=== PATIENT | female | born 1960 | race Caucasian/White ===

== ENCOUNTER 2019-12-03 15:58 | Emergency (ER) | payer BC, SELFPAY ==
--- NOTE | ~2019-12-03 | US_ITS ---
EXAMINATION: US venous doppler LE DATE: 12/03/2019 16:35 INDICATION: Right lower limb pain and swelling. TECHNIQUE: Grayscale ultrasound images without and with compression and Doppler ultrasound images of the right lower extremity veins were obtained. COMPARISON: Ultrasound 08/07/2019 FINDINGS: The visualized portions of right common femoral vein, profunda (deep) femoral vein, femoral vein, pop liteal vein, peroneal veins, posterior tibial veins, and greater saphenous vein outflow are patent. IMPRESSION: 1. No deep venous thrombosis. Reviewed, dictated and finalized at location A. 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
--- NOTE | 2019-12-03 16:44 | ED.LOWEXIN ---
HPI - Extremity Injury (Lower) General Stated Complaint: r leg swelling Time Seen by Provider: 12/03/19 16:07 Source: patient Mode of arrival: ambulatory Limitations: no limitations History of Present Illness HPI Narrative: Patient presents with chief complaint of increased swelling to her right lower leg that she has noted over the past few days. Patient states that she had a tumor removed by orthopedic surgery in [facility] on November 01. She states that she had drain removed from her leg on November 05. Patient states she has been up and about walking more often lately but denies any trauma to her leg. Patient states that she notes swelling from the knee to her toes. She reports a tight sensation to her leg. She denies localized tenderness to her calf. Patient states that she called her surgeon who instructed her to come to [facility] for rule out DVT. Patient denies any fevers, chills, shortness of breath, chest pain or any other symptoms. Patient states that she takes an aspirin twice daily but is now any additional blood thinners. Patient reports a history of hypertension, hypercholesterol. She denies smoking, substance abuse or alcohol usage. Related Data Home Medications Medication Instructions Recorded Confirmed hydrocodone-acetaminophen [[place]] 5 - 325 tablet PO HS 10/05/19 10/05/19 pravastatin 40 mg HS 10/05/19 10/05/19 Allergies Allergy/AdvReac Type Severity Reaction Status Date / Time adhesive tape Allergy Intermediate REDNESS,ITC Verified 10/08/19 11:25 [facility] Review of Systems Review of Systems: Narrative: CONSTITUTIONAL: Denies fever, chills, or sweats. EYES: Denies visual changes, redness, or discharge. ENT: Denies rhinorrhea, congestion, sore throat, or otalgia. CARDIOVASCULAR: Denies chest pain, palpitations, or edema. RESPIRATORY: Denies cough or dyspnea. GASTROINTESTINAL: Denies abdominal pain, nausea, vomiting, or diarrhea. GENITOURINARY: Denies dysuria or hematuria. SKIN: Denies rash or itching. MUSCULOSKELETAL: Reports right leg swelling denies back pain, joint pain, or myalgia. NEUROLOGIC: Denies headache, numbness, dizziness, or weakness. PSYCHIATRIC: Denies anxiety or depression. [facility] Past Medical History Medical History (Updated 12/03/19 @ 16:51 by Dez Gore PA-C) Arthritis Osteoarthritis, mainly in the knees. She receives cortisone injections in the right knee per Dr. Bro. She is status post partial left knee replacement. GERD (gastroesophageal reflux disease) HTN (hypertension) Hyperlipidemia Seasonal allergies Family History Family History (Updated 10/05/19 @ 15:37 by Leatha Lance PA-C) Father Diabetes mellitus Myasthenia gravis Mother Hypertension Family history of malignant neoplasm of breast in first degree relative Social History Social History (Updated 10/05/19 @ 15:39 by Leatha Lance PA-C) Social History: Mrs. Vogt is and lives with her in [place]. She designates her , León Vogt, as her surrogate decision maker and she wishes to be a full code. They have 2 children, 1 daughter without any significant medical problems. Their son was killed by a drunk coach driver at age 7. 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 She smoked up to 2 packs of cigarettes per day and quit in 2004. She considers herself a social drinker and will typically have a glass of wine with dinner several nights a week as well. She denies illicit drug use. Gender identity (if verbalized by the patient): Female Exam Narrative: Exam Narrative: GENERAL: Well-appearing, well-nourished, and in no acute distress. HEAD: Normocephalic, atraumatic. EYES: PERRLA and EOMI. ENT: Nares clear, no rhinorrhea or epistaxis. Mucous membranes moist. Oropharynx without tonsillar hypertrophy exudate or other lesions. Bilateral TMs pearly gutierrez nonbulging NECK: Supple. No raghav
[2019-12-03 16:47] VITALS: BP 137/77; PULSE 103; RESP 16; TEMP 37; O2SAT 98
== END 2019-12-03 17:03 | disposition home or self-care (01) ==
PROVIDERS: Emergency Provider Emergency Medicine; PCP Family Medicine
DX: R60.0 Localized edema (principal); M19.90 Unspecified osteoarthritis, unspecified site; K21.9 Gastro-esophageal reflux disease without esophagitis; I10 Essential (primary) hypertension; E78.5 Hyperlipidemia, unspecified
CPT/HCPCS: 93971; 99284

== ENCOUNTER 2020-03-25 08:41 | Emergency (ER) | payer BC, SELFPAY ==
--- NOTE | 2020-03-25 08:49 | ED.FEMALEGU ---
HPI - Female Genitourinary General Chief complaint: Urogenital-Female Stated complaint: uti? Time Seen by Provider: 03/25/20 08:49 Source: patient Mode of arrival: ambulatory Limitations: no limitations History of Present Illness HPI Narrative: Patient is a 59-year-old female who presents for evaluation of dysuria, fever. Patient reports a 4-day history of worsening pain with urination, and urinary frequency. She reports mild, aching back pain which is dull in nature without radiation to the chest. Patient also reports lower abdominal pain. No nausea or vomiting. No chest pain, headache. No weakness. Patient states she has history of urinary tract infection several years ago, no recent antibiotics for this. She denies constipation or diarrhea. Related Data Home Medications Medication Instructions Recorded Confirmed hydrocodone-acetaminophen [[place]] 5 - 325 tablet PO HS 10/05/19 10/05/19 pravastatin 40 mg tablet 40 mg PO DAILY 02/14/20 Allergies Allergy/AdvReac Type Severity Reaction Status Date / Time adhesive tape Allergy Intermediate REDNESS,ITC Verified 02/14/20 09:38 [facility] Review of Systems Review of Systems: Narrative: CONSTITUTIONAL: Reports fever CARDIOVASCULAR: Denies chest pain, palpitations, or edema. RESPIRATORY: Denies cough or dyspnea. GASTROINTESTINAL: Reports lower abdominal pain, denies nausea, vomiting or diarrhea GENITOURINARY: Reports dysuria and hematuria SKIN: Denies rash or itching. MUSCULOSKELETAL: Reports back pain, denies myalgias NEUROLOGIC: Denies headache, numbness, or weakness. [facility] Past Medical History Medical History Arthritis Osteoarthritis, mainly in the knees. She receives cortisone injections in the right knee per Dr. Bro. She is status post partial left knee replacement. GERD (gastroesophageal reflux disease) HTN (hypertension) Hyperlipidemia Seasonal allergies Surgical History Surgical History H/O inguinal hernia repair H/O rotator cuff surgery Bilateral History of bilateral carpal tunnel release History of cholecystectomy History of colonoscopy History of tonsillectomy Status post left partial knee replacement Family History Family History Father Diabetes mellitus Myasthenia gravis Mother Hypertension Family history of malignant neoplasm of breast in first degree relative Social History Social History Social History: Mrs. Vogt is and lives with her in [place]. She designates her , León Vogt, as her surrogate decision maker and she wishes to be a full code. They have 2 children, 1 daughter without any significant medical problems. Their son was killed by a drunk ross carrier driver at age 7. 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 She smoked up to 2 packs of cigarettes per day and quit in 2004. She considers herself a social drinker and will typically have a glass of wine with dinner several nights a week as well. She denies illicit drug use. Gender identity (if verbalized by the patient): Female Exam Narrative: Exam Narrative: GENERAL: Awake, alert, conversant HEAD: Normocephalic, atraumatic. EYES: PERRLA and EOMI. ENT: Nares clear, no rhinorrhea or epistaxis. Mucous membranes moist. NECK: Supple. CHEST: No respiratory distress, breathing even and non labored HEART: Tachycardic rate, sinus rhythm ABDOMEN:Non distended, non tender, mild suprapubic tenderness, no CVA tenderness EXTREMITIES: Normal range of motion. No edema. SKIN: Warm, dry, no rash. NEURO:No focal deficits. Alert and oriented x3 Course Vital Signs Vital signs: Vital Signs Temperature 37.6 C H 03/25/20 08:50 Pulse Rate 118 H 03/25/20 08:50 Respiratory Rate 18 03/25/20 08:50
[2020-03-25 08:50] VITALS: BP 121/78; PULSE 118; RESP 18; TEMP 37.6; O2SAT 96
[2020-03-25] MEDS: ONDANSETRON INJ 4 MG/2 ML VIAL IV PUSH (09:05)
[2020-03-25] MEDS: SODIUM CHLORIDE 0.9% IV 1,000 ML 999 ML IV CONT (09:05)
[2020-03-25 09:12] LABS: Add Urine Microscopic? YES; Appearance Urine Clear (Clear); Bacteria Urine Trace /hpf; Bilirubin Urine Negative (Negative); Blood Urine Negative (Negative); Color Urine Yellow (Yellow); Glucose Urine UA Negative (Negative); Ketones Urine Negative (Negative); Leukocyte Esterase Ur 1+ LEU/UL (Negative); Mucus Urine Rare /lpf; Nitrate Urine Negative (Negative); Protein Urine Negative (Negative); Specific Grav Ur 1.015 (1.001-1.035); Squamous Epithelial Cell Urine Many /hpf (Few); Transitional Epi Cells Urine Rare /hpf (None Seen); Urobilinogen Urine Negative mg/dL (<2.0)
[2020-03-25 09:16] LABS: Basophils Absolute Auto 0.1 K/mm3 (0.0-0.1); Basophils Percent Auto 0.4 % (0.2-1.2); Eosinophils Absolute Auto 0.2 K/mm3 (0-0.3); Eosinophils Percent Auto 1.4 % (0-4.4); Hematocrit 24.9 % (37.0-47.0); Hemoglobin 7.9 g/dL (12.0-15.0); Immature Granulocyte Absolute 0.32 K/mm3 (0.00-0.031); Immature Granulocyte Percent A 2.5 % (0-0.5); Lymphocytes Absolute Auto 1.37 K/mm3 (0.9-3.2); Lymphocytes Percent Auto 10.8 % (18.3-44.2); Mean Corpuscular HGB Conc 31.7 g/dl (32-36); Mean Corpuscular Hemoglobin 29.4 pg (26-34); Mean Corpuscular Volume 92.6 fl (80-100); Monocytes Absolute Auto 1.6 K/mm3 (0.1-0.6); Monocytes Percent Auto 12.5 % (2.6-8.5); Neutrophils Absolute Auto 9.2 K/mm3 (1.3-6.7); Neutrophils Percent Auto 72.4 % (45.5-73.1); Platelet Count Result 628 k/mm3 (150-375); Red Blood Count 2.69 M/mm3 (4.2-5.4); Red Cell Distribution Width 13.4 % (11.5-14.5); White Blood Count 12.7 K/mm3 (4.5-10.0)
[2020-03-25 09:27] LABS: Lactic Acid Reflex 1.5 mmol/L (0.7-2.1)
[2020-03-25 09:28] LABS: Blood Urea Nitrogen 10 mg/dL (7-17); Calcium 9.4 mg/dL (8.4-10.2); Carbon Dioxide 25 mmol/L (22-30); Chloride 99 mmol/L (98-107); Estimated CRCL calculation 93 ml/min; Estimated Glomerular Filt Rate > 60; Glucose 126 mg/dL (65-105); Potassium 4.1 mmol/L (3.4-5.0); Sodium 135 mmol/L (137-145)
[2020-03-25 09:33] VITALS: BP 105/63; PULSE 98; RESP 18; O2SAT 99
[2020-03-25 09:53] VITALS: BP 107/64; PULSE 95; RESP 22; O2SAT 95
== END 2020-03-25 09:58 | disposition home or self-care (01) ==
PROVIDERS: Emergency Provider Emergency Medicine; PCP Family Medicine
DX: N10 Acute pyelonephritis (principal); M17.0 Bilateral primary osteoarthritis of knee; K21.9 Gastro-esophageal reflux disease without esophagitis; E78.5 Hyperlipidemia, unspecified; Z96.652 Presence of left artificial knee joint
CPT/HCPCS: 36415; 80048; 81001; 83605; 85025; 87040; 96365; 96375; 99284; J0131; J0696; J2405; J7030

== ENCOUNTER 2020-03-29 12:36 | Emergency (ER) | payer BC, SELFPAY ==
--- NOTE | ~2020-03-29 | XR_ITS ---
XR chest 2V DATE: 03/29/2020 13:27 INDICATION: Fever TECHNIQUE: PA and lateral views COMPARISON: 10/05/2019 CT pulmonary scan FINDINGS: Multiple nodular appearing opacities overlie the left lower lung in the lingular area and t o a lesser extent the left upper lung; no such findings were present on the 10/05/2019 CT pulmonary s can. These may be somewhat nodular appearing areas of consolidation. Differential diagnosis includes pneumonia, septic emboli, pulmonary masses. Continued radiographic follow-up is recommended to ensure complete clearing. CT thorax may be of value for more definitive evaluation at this time as clinical ly appropriate. The right lung appears clear. No pleural effusion or pulmonary vascular congestion or pneumothorax. Surgical clips overlie the right upper quadrant, consistent with cholecystectomy. Scoliosis and degenerative changes of the thoracic and lumbar spine. IMPRESSION: Pulmonary nodules or nodular areas of consolidation, involving lingula and to a lesser ex tent left upper lobe, not present on 10/05/2019 CT pulmonary scan. Consider CT thorax. Continued radi ographic follow-up is recommended to a short clearing. Reviewed, dictated and finalized at location A. IMPRESSION: Pulmonary nodules or nodular areas of consolidation, involving ling wood and to a lesser extent left upper lobe, not present on 10/05/2019 CT pulmon libby scan. Consider CT thorax. Continued radiographic follow-up is recommended t o a short clearing.
[2020-03-29 12:37] VITALS: BP 97/58; PULSE 102; RESP 16; TEMP 36.6; O2SAT 98
[2020-03-29] MEDS: SODIUM CHLORIDE 0.9% IV 1,000 ML 999 ML IV CONT (13:11)
[2020-03-29 13:19] LABS: Basophils Absolute Auto 0.1 K/mm3 (0.0-0.1); Basophils Percent Auto 0.4 % (0.2-1.2); Eosinophils Absolute Auto 0.3 K/mm3 (0-0.3); Eosinophils Percent Auto 1.8 % (0-4.4); Hematocrit 24.9 % (37.0-47.0); Hemoglobin 7.8 g/dL (12.0-15.0); Immature Granulocyte Absolute 0.27 K/mm3 (0.00-0.031); Immature Granulocyte Percent A 1.9 % (0-0.5); Lymphocytes Absolute Auto 1.59 K/mm3 (0.9-3.2); Lymphocytes Percent Auto 11.2 % (18.3-44.2); Mean Corpuscular HGB Conc 31.3 g/dl (32-36); Mean Corpuscular Hemoglobin 29.2 pg (26-34); Mean Corpuscular Volume 93.3 fl (80-100); Monocytes Absolute Auto 1.8 K/mm3 (0.1-0.6); Monocytes Percent Auto 12.5 % (2.6-8.5); Neutrophils Absolute Auto 10.3 K/mm3 (1.3-6.7); Neutrophils Percent Auto 72.2 % (45.5-73.1); Platelet Count Result 688 k/mm3 (150-375); Red Blood Count 2.67 M/mm3 (4.2-5.4); Red Cell Distribution Width 13.7 % (11.5-14.5); White Blood Count 14.3 K/mm3 (4.5-10.0)
[2020-03-29 13:20] LABS: Add Urine Microscopic? YES; Appearance Urine Clear (Clear); Bilirubin Urine Negative (Negative); Blood Urine Negative (Negative); Color Urine Yellow (Yellow); Glucose Urine UA Negative (Negative); Hyaline Casts Urine 15-19 /lpf; Ketones Urine Negative (Negative); Leukocyte Esterase Ur Negative LEU/UL (Negative); Mucus Urine Rare /lpf; Nitrate Urine Negative (Negative); Protein Urine 1+ mg/dL (Negative); RBC Urine 0-2 /hpf (0-2); Specific Grav Ur 1.027 (1.001-1.035); Squamous Epithelial Cell Urine Moderate /hpf (Few); Transitional Epi Cells Urine Rare /hpf (None Seen); Urobilinogen Urine Negative mg/dL (<2.0)
[2020-03-29 13:37] LABS: Lactic Acid Reflex 0.7 mmol/L (0.7-2.1)
[2020-03-29 13:38] LABS: Blood Urea Nitrogen 11 mg/dL (7-17); Calcium 9.4 mg/dL (8.4-10.2); Carbon Dioxide 27 mmol/L (22-30); Chloride 99 mmol/L (98-107); Estimated CRCL calculation 67 ml/min; Estimated Glomerular Filt Rate > 60; Glucose 100 mg/dL (65-105); Potassium 4.2 mmol/L (3.4-5.0); Sodium 136 mmol/L (137-145)
[2020-03-29 14:02] VITALS: BP 105/66
[2020-03-29 15:10] VITALS: BP 115/72; PULSE 95; RESP 16; O2SAT 98
--- NOTE | 2020-03-29 15:29 | ED.GENADULT ---
HPI - General Adult General Chief complaint: Urogenital-Female Stated complaint: UTI Time Seen by Provider: 03/29/20 12:45 History of Present Illness HPI narrative: Patient is a 59-year-old female who presents the ER with concerns for fever and UTI. Patient was seen earlier in the week on 03/25/2020. At that time she was having fevers and was treated for UTI with Keflex. She reports her fevers persist. 2 days ago patient underwent a bronchoscopy to have lung nodules biopsied. She discussed this with her doctors that time. 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 They noticed lung nodules on her chest x-ray in January and those increased in size in December necessitating biopsy. She has not had the results back yet. She denies any new runny nose/sore throat/productive cough/dyspnea. Her urine she reports is darker with occasional discomfort with urination. No urinary frequency or urgency. She is without abdominal pain or diarrhea. She has no known exposures to COVID has been staying at home. She has not been tested for COVID. Related Data Home Medications Medication Instructions Recorded Confirmed hydrocodone-acetaminophen [[place]] 5 - 325 tablet PO HS 10/05/19 10/05/19 pravastatin 40 mg tablet 40 mg PO DAILY 02/14/20 Allergies Allergy/AdvReac Type Severity Reaction Status Date / Time adhesive tape Allergy Intermediate REDNESS,ITC Verified 03/29/20 12:38 [facility] Review of Systems Review of Systems: All systems reviewed & are unremarkable except as noted in HPI and below Constitutional: Constitutional: Reports fatigue, Reports fever(s) and Denies weakness ENT: Denies nasal congestion and Denies sore throat Cardiovascular: Cardiovascular: Denies chest pain, Denies rapid heart rate and Denies radiating jaw, neck or arm pain Respiratory: Respiratory: Denies cough, Denies dyspnea and Denies wheezing Gastrointestinal: Gastrointestinal: Denies abdominal pain, Denies nausea and Denies vomiting Genitourinary: Genitourinary: Denies hematuria, Denies nocturia and Reports dysuria [facility] Past Medical History Medical History (Updated 03/29/20 @ 15:36 by Haris Camacho MD) Arthritis Osteoarthritis, mainly in the knees. She receives cortisone injections in the right knee per Dr. Bro. She is status post partial left knee replacement. GERD (gastroesophageal reflux disease) HTN (hypertension) Hyperlipidemia Sarcoma Seasonal allergies Surgical History Surgical History H/O inguinal hernia repair H/O rotator cuff surgery Bilateral History of bilateral carpal tunnel release History of cholecystectomy History of colonoscopy History of tonsillectomy Status post left partial knee replacement Social History Social History Social History: Mrs. Vogt is and lives with her in [place]. She designates her , León Vogt, as her surrogate decision maker and she wishes to be a full code. They have 2 children, 1 daughter without any significant medical problems. Their son was killed by a drunk pole truck driver at age 7. 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 She smoked up to 2 packs of cigarettes per day and quit in 2004. She considers herself a social drinker and will typically have a glass of wine with dinner several nights a week as well. She denies illicit drug use. Gender identity (if verbalized by the patient): Female Exam Narrative: Exam Narrative: GENERAL: Well-appearing, well-nourished, and in no acute distress. HEAD: Normocephalic, atraumatic. ENT: Mucous membranes moist. CHEST: Clear to auscultation. No respiratory distress. HEART: Regular rate and rhythm. Normal peripheral pulses. ABDOMEN: Soft, nontender, nondistended. EXTREMITIES: Normal range of motion. No ed
[2020-03-31 15:57] LABS: SARS-CoV-2 RNA PCR Negative
== END 2020-03-29 15:45 | disposition home or self-care (01) ==
PROVIDERS: Emergency Provider Emergency Medicine; PCP Family Medicine
DX: R50.9 Fever, unspecified (principal); R91.8 Other nonspecific abnormal finding of lung field; Z20.828 Contact with and (suspected) exposure to other viral communicable diseases; M17.0 Bilateral primary osteoarthritis of knee; K21.9 Gastro-esophageal reflux disease without esophagitis; I10 Essential (primary) hypertension; E78.5 Hyperlipidemia, unspecified; Z85.828 Personal history of other malignant neoplasm of skin; Z96.652 Presence of left artificial knee joint; Z87.891 Personal history of nicotine dependence
CPT/HCPCS: 36415; 71046; 80048; 81001; 83605; 85025; 87635; 96360; 99283; C9803; J7030; U0003